=== PATIENT | female | born 1990 | race Caucasian/White ===

== ENCOUNTER → 2024-09-27 09:51 | Outpatient (REF) | payer OTHER, SELFPAY | LOC: HWRAD 09:51 | PROVIDERS: ATTENDING PHYSICIAN Advanced Practice Midwife; FAMILY PHYSICIAN Physician Assistant | DX: R10.2 Pelvic and perineal pain (principal) | CPT/HCPCS: 76830; 76856 ==

== ENCOUNTER → 2025-02-12 12:46 | Outpatient (REF) | payer OTHER, SELFPAY | LOC: RAD 12:46 | PROVIDERS: ATTENDING PHYSICIAN Obstetrics & Gynecology; FAMILY PHYSICIAN Physician Assistant | DX: O26.851 Spotting complicating pregnancy, first trimester (principal) | CPT/HCPCS: 76801 ==

== ENCOUNTER → 2025-03-06 10:43 | Outpatient (REF) | payer OTHER, SELFPAY | LOC: PNTC 10:43 | PROVIDERS: ATTENDING PHYSICIAN Obstetrics & Gynecology | DX: Z36.0 Encounter for antenatal screening for chromosomal anomalies (principal); Z36.82 Encounter for antenatal screening for nuchal translucency; O99.211 Obesity complicating pregnancy, first trimester; O09.521 Supervision of elderly multigravida, first trimester | CPT/HCPCS: 76801; 76813 ==

== ENCOUNTER → 2025-03-31 13:22 | Outpatient (REF) | payer OTHER, SELFPAY | LOC: PNTC 13:22 | PROVIDERS: ATTENDING PHYSICIAN Obstetrics & Gynecology | DX: O99.212 Obesity complicating pregnancy, second trimester (principal); O09.522 Supervision of elderly multigravida, second trimester | CPT/HCPCS: 76805; 76821 ==

== ENCOUNTER → 2025-04-14 14:46 | Outpatient (REF) | payer OTHER, SELFPAY | LOC: PNTC 14:46 | PROVIDERS: ATTENDING PHYSICIAN Student in an Organized Health Care Education/Training Program | DX: O33.7XX0 Maternal care for disproportion due to other fetal deformities, not applicable or unspecified (principal) | CPT/HCPCS: 76815; 76821 ==

== ENCOUNTER → 2025-04-21 15:48 | Outpatient (REF) | payer OTHER, SELFPAY | LOC: PNTC 15:48 | PROVIDERS: ATTENDING PHYSICIAN Student in an Organized Health Care Education/Training Program | DX: O33.7XX0 Maternal care for disproportion due to other fetal deformities, not applicable or unspecified (principal) | CPT/HCPCS: 76815; 76821 ==